=== PATIENT | female | born 1990 | race Caucasian/White ===

== ENCOUNTER 2016-11-19 11:46 | Day surgery (SDC) | payer OTHER ==
[2016-11-16 14:52] VITALS: BMI 33.3
[2016-11-19] VITALS (14 sets, daily range): BP systolic 117–139; BP diastolic 60–80; PULSE 58–92; RESP 17–22; Ht 154.9 cm; Wt 85.0 kg
[~2016-11-19] VITALS: Ht 154.9 cm; Wt 85.0 kg
[~2016-11-19 11:46] MED LIST: BIRTH CONTROL; CEFAZOLIN 2 GM/50 ML (PMX) 50 ML IVPB SCH; SOD CHLORIDE 0.9% 1,000 ML IV SCH
[2016-11-19] MEDS ORDERED: BUPIVACAINE 0.25% (MPF) 30 ML INJ INJ ONE (12:15)
[2016-11-19] MEDS ORDERED: BUPIVACAINE 0.25% (MPF) 30 ML INJ ONE (12:45)
[2016-11-19] MEDS ORDERED: PROPOFOL 60 ML ONE (13:00)
[2016-11-19] MEDS ORDERED: ROCURONIUM 50 MG INJ ONE (13:01)
[2016-11-19] MEDS ORDERED: LIDOCAINE 2% (SDV) 5 ML INJ ONE (13:01)
[2016-11-19] MEDS ORDERED: FENTAnyl 50 MCG/ML VIAL ONE ×2 (13:26→14:18)
[2016-11-19] MEDS ORDERED: MIDAZOLAM 1 MG/ML 2 ML INJ ONE (13:26)
[2016-11-19] MEDS ORDERED: MEPERIDINE 25 MG INJ IV PRN (13:30)
[2016-11-19] MEDS ORDERED: FENTAnyl 50 MCG/ML VIAL IV PRN ×3 (13:30)
[2016-11-19] MEDS ORDERED: HYDROmorphONE (0.2 MG/ML) 10ML SYG IV PRN ×2 (13:30)
[2016-11-19] MEDS ORDERED: ONDANSETRON 4 MG INJ IV PRN (13:30)
[2016-11-19] MEDS ORDERED: METOCLOPRAMIDE 10 MG INJ IV PRN (13:30)
[2016-11-19] MEDS ORDERED: EPHEDrine SULFATE 50 MG/5 ML SYG IV PRN (13:30)
[2016-11-19] MEDS ORDERED: LABETALOL HCL 20MG INJ IV PRN (13:30)
[2016-11-19] MEDS ORDERED: hydrALAzine 20 MG INJ IV PRN (13:30)
[2016-11-19] MEDS ORDERED: DIPHENHYDRAMINE 50 MG INJ IV PRN (13:30)
[2016-11-19] MEDS ORDERED: LABETALOL HCL 20MG INJ ONE (13:44)
[2016-11-19] MEDS ORDERED: ONDANSETRON 4 MG INJ ONE (14:08)
[2016-11-19] MEDS ORDERED: DEXAMETHASONE 4 MG/ML 1 ML INJ ONE (14:08)
[2016-11-19] MEDS ORDERED: GLYCOPYRROLATE 0.4 MG INJ ONE (14:28)
[2016-11-19] MEDS ORDERED: NEOSTIGMINE 3 MG/3 ML SYRINGE ONE (14:29)
[2016-11-19] MEDS ORDERED: ACETAMINOPHEN 1000MG/100ML IV 100 ML ONE (14:29)
[2016-11-19] MEDS ORDERED: HYDROCODONE/APAP (5/325) TAB PO ONE (14:30)
[2016-11-19] MEDS: HYDROmorphONE (0.2 MG/ML) 10ML SYG IV PRN ×3 (14:44→14:58)
--- NOTE | 2016-11-19 18:57 | OPR ---
DATE OF OPERATION: 11/19/2016 INDICATION: This is a 26-year-old female with symptomatic gallstones. She requests surgical excisi on of her gallbladder. Risks, alternatives, benefits, and personnel were discussed with patient. T he patient expressed understanding and consents to the operation. PREOPERATIVE DIAGNOSIS: Symptomatic gallstones. POSTOPERATIVE DIAGNOSIS: Symptomatic gallstones. OPERATION PERFORMED: 1. Laparoscopic cholecystectomy. CPT codes 21561. 2. Therapeutic injection of subcutaneous local anesthesia. CPT code 37739. SURGEON: Camron Jacinto MD SPECIMENS: Gallbladder. COMPLICATIONS: None. ANESTHESIA: General. PROCEDURE: The patient was taken to the OR and prepped and draped in usual sterile fashion. Surgic al timeout was performed. IV antibiotics were given. Infraumbilical incision was made transversely with a 15 blade. Dissection cautery was carried down to the fascia and divided with curved Roland sc issors. An 0 Vicryl U-stitch was placed into the fascia. Balloon Paul trocar was introduced. Pn eumoperitoneum established. Midepigastric 12 mm optical trocar and right upper quadrant and right u pper flank 5 mm optical trocars are placed under direct visualization. Upon initial inspection, the re were some adhesions to the gallbladder. The cystic duct was identified. The critical view was e stablished. The cystic duct was divided using a 35 mm [place] vascular load stapler. The cystic ar mary was divided with clips proximally and distally. Gallbladder was taken off the gallbladder bed. There was good hemostasis. Gallbladder was retrieved using EndoCatch bag. There was good hemosta sis. Ports removed under direct visualization. The 0 Vicryl U-stitch was tied down. Skin was clos ed using skin scarlet. Local anesthesia was injected. Dry dressings were applied. Dictated By: CAMRON FOSS/[place] Conf#: [id number] DID#: [id number]
== END 2016-11-19 16:20 | disposition home or self-care (01) ==
LOC: SDS 11:46
PROVIDERS: ATTEND Surgery
DX: K81.1 Chronic cholecystitis (principal); E66.9 Obesity, unspecified; Z68.35 Body mass index [BMI] 35.0-35.9, adult
CPT/HCPCS: 47562; 88304; J0131; J1100; J1170; J2250; J2405; J2710; J3010; Z7512; Z7610